=== PATIENT | female | born 1995 | race African-American/Black ===

== ENCOUNTER 2019-06-13 11:11 | Day surgery (SDC) | payer OTHER ==
[~2019-06-13] VITALS: Ht 160 cm; Wt 90.0 kg
[2019-06-13] VITALS (10 sets, daily range): BP systolic 99–121; BP diastolic 49–67; PULSE 70–86; RESP 15–19; Ht 160 cm; Wt 90.0 kg
[~2019-06-13 11:11] MED LIST: FER325 PO; LACTATED RINGER'S 1,000 ML IV SCH
[2019-06-13] MEDS ORDERED: EPHEDrine 25 MG/5 ML SYG ONE (12:36)
[2019-06-13] MEDS ORDERED: MIDAZOLAM 1 MG/ML 2 ML INJ ONE (12:36)
[2019-06-13] MEDS ORDERED: CEFAZOLIN 1 GM INJ ONE (12:36)
[2019-06-13] MEDS ORDERED: PROPOFOL 20 ML ONE (12:36)
[2019-06-13] MEDS ORDERED: KETOROLAC 30 MG INJ ONE (12:37)
[2019-06-13] MEDS ORDERED: FENTAnyl 50 MCG/ML VIAL ONE (12:37)
[2019-06-13] MEDS ORDERED: METOCLOPRAMIDE 10 MG INJ ONE (12:37)
[2019-06-13] MEDS ORDERED: DIPHENHYDRAMINE 50 MG INJ IV PRN (13:30)
[2019-06-13] MEDS ORDERED: FENTAnyl 50 MCG/ML VIAL IV PRN ×3 (13:30)
[2019-06-13] MEDS ORDERED: OXYCODONE/ACETAMINOPHEN (5/325) TAB PO PRN ×2 (13:30)
[2019-06-13] MEDS ORDERED: MEPERIDINE 25 MG INJ IV PRN (13:30)
[2019-06-13] MEDS ORDERED: HYDROmorphONE 1 MG/5 ML IV SYRINGE IV PRN ×3 (13:30)
[2019-06-13] MEDS ORDERED: KETOROLAC 30 MG INJ IV PRN (13:30)
[2019-06-13] MEDS ORDERED: ONDANSETRON 4 MG INJ IV PRN (13:30)
== END 2019-06-13 16:10 | disposition home or self-care (01) ==
LOC: SDS 11:11
PROVIDERS: ATTEND Obstetrics & Gynecology
DX: N92.0 Excessive and frequent menstruation with regular cycle (principal); D64.9 Anemia, unspecified; D25.9 Leiomyoma of uterus, unspecified
CPT/HCPCS: 85025; 88305; J0690; J1885; J2250; J2765; J3010